=== PATIENT | male | born 1955 | race Caucasian/White ===

== ENCOUNTER 2017-03-30 19:22 | Inpatient (IN) | payer MEDICAID, OTHER ==
[~2017-03-30] VITALS: Ht 182.9 cm; Wt 84.5 kg
[2017-03-30] MEDS ORDERED: PIPER-TAZO 3.375 GM IV (PMX) 100 ML IVPB ONE (22:30)
[2017-03-30] MEDS ORDERED: VANCOMYCIN 1 GM (PMX) 250 ML IVPB SCH (22:30)
--- NOTE | 2017-03-30 23:01 | ERA ---
ER Documentation Chief Complaint Date/Time DATE: 03/30/17 TIME: 22:59 Chief Complaint RT FOOT/TOE INFECTION [id number]. ON ORAL ATB. SENT FOR FURTHER EVAL BY PMD HPI 61-year-old male here for right great toe infection for 8 weeks. He is on oral antibiotics. Sent in by his spring assembler for possible debridement and rule out osteomyelitis. ROS All systems reviewed and are negative except as per history of present illness. Allergies Allergies: Coded Allergies: No Known Allergy (Unverified , 03/30/17) PMhx/Soc Hx Miscellaneous Medical Probl: Yes (DM) Hx Alcohol Use: No Hx Substance Use: No Hx Tobacco Use: No Smoking Status: Never smoker Physical Exam Vitals Vital Signs Date Time Temp Pulse Resp B/P Pulse Ox O2 Delivery O2 Flow Rate FiO2 03/30/17 20:05 98.8 117 18 132/76 98 Physical Exam Const: [] Head: Atraumatic Eyes: Normal Conjunctiva ENT: Normal External Ears, Nose and Mouth. Neck: Full range of motion..~ No meningismus. Resp: Clear to auscultation bilaterally Cardio: Regular rate and rhythm, no murmurs Abd: Soft, non tender, non distended. Normal bowel sounds Skin: No petechiae or rashes Back: No midline or flank tenderness Ext: Right toe with induration and erythema noted. Neur: Awake and alert Psych: Normal Mood and Affect Results 24 hrs Current Medications Medications (Trade) Dose Ordered Sig/Darion Route PRN Reason Start Time Stop Time Status Last Admin Dose Admin Piperacillin Sod/ Tazobactam Sod 100 ml @ 200 mls/hr ONCE ONCE IVPB 03/30/17 22:30 03/30/17 22:59 DC 03/30/17 22:54 Vancomycin HCl (Vancocin) 250 ml @ 125 mls/hr ONCE IVPB 03/30/17 22:30 03/31/17 00:29 Procedures/MDM Medical decision-makin-year-old male with likely osteomyelitis present in by spring assembler. Admitted to hospitalist. Log Cut Off Sawyer here in ER seeing patient Departure Diagnosis: Primary Impression: Osteomyelitis Qualified Code: M86.9 - Osteomyelitis of right foot, unspecified type Condition: Serious MONY ESCOBAR Mar 30, 2017 23:01
[2017-03-30 23:14] LABS: ADD SCAN DIFF NO
[2017-03-30 23:18] LABS: BASOPHIL # 0.1 10^3/ul (0.0-0.1); EOSINOPHILS # 0.3 10^3/ul (0.0-0.5); HEMATOCRIT 35.4 % (42.0-52.0); HEMOGLOBIN 11.3 g/dl (14.0-18.0); LYMPHOCYTES # 1.6 10^3/ul (0.8-2.9); LYMPHOCYTES % 26.3 % (15.0-51.0); MEAN CORPUSCULAR HEMOGLOBIN 27.6 pg (29.0-33.0); MEAN CORPUSCULAR HGB CONC 31.9 g/dl (32.0-37.0); MEAN CORPUSCULAR VOLUME 86.6 fl (82.0-101.0); MEAN PLATELET VOLUME 9.6 fl (7.4-10.4); MONOCYTE # 0.7 10^3/ul (0.3-0.9); MONOCYTES % 11.5 % (0.0-11.0); NEUTROPHIL # 3.6 10^3/ul (1.6-7.5); PLATELET COUNT 379 10^3/UL (140-415); RED BLOOD COUNT 4.09 10^6/ul (4.70-6.10); RED CELL DISTRIBUTION WIDTH 14.3 % (11.5-14.5); WHITE BLOOD COUNT 6.2 10^3/ul (4.8-10.8)
--- NOTE | 2017-03-30 23:44 | RADRPT ---
PROCEDURE: XR right foot. CLINICAL INDICATION: Infection TECHNIQUE: AP, lateral and oblique views of the right foot were obtained. COMPARISON: None. FINDINGS: Bony destruction involving the first metatarsal head and first proximal phalangeal base is present, the finding most compatible with septic arthritis and osteomyelitis of the great toe. The distal ph alanx of the great toe is abnormal in morphology. The remaining metatarsals and phalanges are unrem arkable. There is no evidence for dislocation. Joint spaces are preserved. Severe soft tissue swe lling and foci of subcutaneous gas involving the great toe are present . There is no evidence for ra diopaque foreign body. RPTAT:HJJR IMPRESSION: Bony destruction of the metatarsal phalangeal joint and phalanges of the great toe consistent with s eptic arthritis and osteomyelitis of the right foot with severe surrounding soft tissue swelling lik nikolas cellulitis. Follow-up is recommended. Physician Vilma Date Time Electronically viewed and signed by Physician Vilma on 03/30/2017 23:44 /
[2017-03-31] VITALS (10 sets, daily range): BP systolic 106–144; BP diastolic 52–80; PULSE 96–104; RESP 12–24; TEMP 98; Ht 182.9 cm; Wt 84.5 kg
[2017-03-31] MEDS ORDERED: ONDANSETRON 4 MG INJ IV PRN ×2 (07:30→23:00)
[2017-03-31] MEDS ORDERED: NACL 0.9% 3 ML SYG IV SCH (07:30)
[2017-03-31] MEDS ORDERED: ACETAMINOPHEN 325 MG TAB PO PRN ×2 (07:30→23:30)
[2017-03-31] MEDS ORDERED: morphine 2 MG INJ IV PRN (07:30)
[2017-03-31] MEDS ORDERED: VANCOMYCIN IV PER PHARMACY XX SCH (07:30)
[2017-03-31] MEDS ORDERED: VANCOMYCIN 750 MG in SOD CHLORIDE 0.9% 150 ML IVPB SCH (08:00)
[2017-03-31 08:03] LABS: ADD SCAN DIFF NO
[2017-03-31 08:05] LABS: BASOPHIL # 0.1 10^3/ul (0.0-0.1); EOSINOPHILS # 0.4 10^3/ul (0.0-0.5); EOSINOPHILS % 6.7 % (0.0-7.0); HEMATOCRIT 33.4 % (42.0-52.0); HEMOGLOBIN 10.7 g/dl (14.0-18.0); LYMPHOCYTES # 1.3 10^3/ul (0.8-2.9); LYMPHOCYTES % 21.5 % (15.0-51.0); MEAN CORPUSCULAR HEMOGLOBIN 27.7 pg (29.0-33.0); MEAN CORPUSCULAR VOLUME 86.5 fl (82.0-101.0); MEAN PLATELET VOLUME 9.9 fl (7.4-10.4); MONOCYTE # 0.7 10^3/ul (0.3-0.9); MONOCYTES % 10.9 % (0.0-11.0); NEUTROPHIL # 3.6 10^3/ul (1.6-7.5); NEUTROPHILS % 59.7 % (39.0-77.0); PLATELET COUNT 327 10^3/UL (140-415); RED BLOOD COUNT 3.86 10^6/ul (4.70-6.10); RED CELL DISTRIBUTION WIDTH 14.5 % (11.5-14.5); WHITE BLOOD COUNT 6.1 10^3/ul (4.8-10.8)
[2017-03-31] MEDS ORDERED: NPH,100V SQ (08:28)
[2017-03-31] MEDS ORDERED: NPH,100I5 SQ (08:28)
[2017-03-31 08:50] LABS: ALBUMIN 4.4 g/dl (3.3-4.9); ALBUMIN/GLOBULIN RATIO 1.29; BILIRUBIN,INDIRECT 0.5 mg/dl (0-1.1); BILIRUBIN,TOTAL 0.5 mg/dl (0.2-1.3); CALCIUM 8.6 mg/dl (8.4-10.2); CREATININE 1.03 mg/dl (0.61-1.24); POTASSIUM 4.9 mmol/L (3.5-5.1); TOTAL PROTEIN 7.8 g/dl (6.1-8.1)
[2017-03-31] MEDS: ENOXAPARIN 40 MG/0.4 ML SYG SC SCH ×2 (09:00→09:22)
[2017-03-31] MEDS: CEFEPIME 1GM/50 ML (PMX) 50 ML IVPB SCH (09:23)
--- NOTE | 2017-03-31 09:58 | PN ---
Date/Time of Note Date/Time of Note DATE: 03/31/17 TIME: 09:58 Assessment/Plan VTE Prophylaxis VTE Prophylaxis Intervention: SCD's Lines/Catheters IV Catheter Type (from Nrs): Saline Lock Assessment/Plan Chief Complaint/Hosp Course Assessment and plan 1. Possible right lower extremity osteomyelitis. Podiatry following. Will get ID consult to follow. Follow-up on culture. Continue antibiotic for now. 2. History of diabetes. Follow-up on A1c. Start on insulin regimen. Will adjust as needed 3. Anemia. Follow-up on iron panel. Disposition and plan: Suspect with right lower extremity cellulitis/osteo- myelitis. Continue antibiotics. Await ID and podiatry input. Continue inpatient monitoring. Discussed plan of care with Dr. Thomson. Problems: Subjective 24 Hr Interval Summary Free Text/Dictation No acute distress noted at this time. Comfortable at present Exam/Review of Systems Vital Signs Vitals Vital Signs Date Time Temp Pulse Resp B/P Pulse Ox O2 Delivery O2 Flow Rate FiO2 03/31/17 05:55 98.0 85 18 166/76 98 Room Air Exam Constitutional: alert, oriented Psych: no complaints Head: normocephalic Neck: supple, No jvd Respiratory: clear to auscultation, normal air movement Cardiovascular: regular rate and rhythm Gastrointestinal: non-tender, soft Extremities: other (Seen with wound drainage on right lower extremity malodorous) 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: HYDRAULIC SPINNER II-XII intact, nl mental status, nl speech Results Result Diagram: 03/31/17 0752 03/31/17 0752 Results 24 hrs Laboratory Tests Test 03/30/17 22:50 03/31/17 00:40 03/31/17 07:52 White Blood Count 6.2 6.1 Red Blood Count 4.09 L 3.86 L Hemoglobin 11.3 L 10.7 L Hematocrit 35.4 L 33.4 L Mean Corpuscular Volume 86.6 86.5 Mean Corpuscular Hemoglobin 27.6 L 27.7 L Mean Corpuscular Hemoglobin Concent 31.9 L 32.0 Red Cell Distribution Width 14.3 14.5 Platelet Count 379 327 Mean Platelet Volume 9.6 9.9 Neutrophils % 57.0 59.7 Lymphocytes % 26.3 21.5 Monocytes % 11.5 H 10.9 Eosinophils % 4.0 6.7 Basophils % 1.0 1.0 Nucleated Red Blood Cells % 0.0 0.0 Neutrophils # 3.6 3.6 Lymphocytes # 1.6 1.3 Monocytes # 0.7 0.7 Eosinophils # 0.3 0.4 Basophils # 0.1 0.1 Nucleated Red Blood Cells # 0.0 0.0 Erythrocyte Sedimentation Rate 70 H Bedside Glucose 72 Sodium Level 137 Potassium Level 4.9 Chloride Level 103 Carbon Dioxide Level 25 Anion Gap 14 Blood Urea Nitrogen 14 Creatinine 1.03 Glucose Level 261 H Calcium Level 8.6 Total Bilirubin 0.5 Direct Bilirubin 0.00 Indirect Bilirubin 0.5 Aspartate Amino Transf (AST/SGOT) 23 Alanine Aminotransferase (ALT/SGPT) 25 Alkaline Phosphatase 108 Total Protein 7.8 Albumin 4.4 Globulin 3.40 H Albumin/Globulin Ratio 1.29 Medications Medications Current Medications Ondansetron HCl (Zofran Inj) 4 mg Q6H PRN IV NAUSEA AND/OR VOMITING; Start 03/31 at 07:30 Acetaminophen (Tylenol Tab) 650 mg Q6H PRN PO PAIN LEVEL 1-3 OR FEVER; Start at 07:30 Morphine Sulfate (morphine) 2 mg Q4H PRN IV SEVERE PAIN LEVEL 7-10; Start at 07:30 Enoxaparin Sodium 40 mg 40 mg DAILY SC ; Start 03/31/17 at 09:00 Vancomycin HCl 750 mg/Sodium Chloride 150 ml @ 75 mls/hr ONCE IVPB Last administered on 03/31/17 08:02; Admin Dose 75 MLS/HR; Start 03/31/17 at 08:00; Stop 03/31/17 at 12:00 Cefepime HCl (Maxipime 1gm/50 ml (Pmx)) 50 ml @ 100 mls/hr Q12 IVPB Last administered on 03/31/17 09:23; Admin Dose 100 MLS/HR; Start 03/31/17 at 09:00 KARISHMA CARREON Mar 31, 2017 09:58
--- NOTE | 2017-03-31 10:08 | QN ---
Documentation Comment Observation Note: Time: 4 hours Family Hx: Negative for diabetes Evaluation: Multiple exams showed improving symptoms and no evidence of clinical decompensation. JESSICA MACIAS MD Mar 31, 2017 10:08
[2017-03-31] MEDS ORDERED: GLUCOSE GEL 15 GRAM TUBE BUCCAL PRN (10:30)
[2017-03-31] MEDS ORDERED: DEXTROSE 50% 50 ML SYRINGE IV PRN ×2 (10:30)
[2017-03-31] MEDS ORDERED: GLUCAGON 1 MG INJ IM PRN (10:30)
[2017-03-31] MEDS ORDERED: GLUCOSE GEL 15 GRAM TUBE PO PRN ×2 (10:30)
[2017-03-31] MEDS: INSULIN GLARGINE [LANtus] 3 ML PEN SC SCH (11:16)
[2017-03-31] MEDS: INSULIN ASPART [NOVOLOG] 3 ML PEN SC SCH ×4 (12:54→17:28)
[2017-03-31 13:00] LABS: IRON 53 ug/dl (35-150)
[2017-03-31 13:10] LABS: TOTAL IRON BINDING CAPACITY 275 ug/dl (241-421)
--- NOTE | 2017-03-31 14:30 | CONS ---
DATE OF ADMISSION: 03/30/2017 DATE OF CONSULTATION: 03/31/2017 TYPE OF CONSULTATION: Infectious Disease. REASON FOR CONSULTATION: Antibiotic management. HISTORY OF PRESENT ILLNESS: Silvio Dang is a 61-year-old male who comes in with right foot and to e infection for 8 weeks. The patient has right great toe infection. He is on oral antibiotics, see n by his business office manager for possible debridement and to rule out osteomyelitis. The patient has diabete s mellitus. PAST MEDICAL HISTORY: Operations as outlined. FAMILY HISTORY: Noncontributory. SOCIAL HISTORY: He does not smoke, drink or abuse drugs. ALLERGIES: NONE TO PENICILLIN, SULFA OR FOODS. MEDICATIONS: Per chart. REVIEW OF SYSTEMS: As per HPI. PHYSICAL EXAMINATION: GENERAL: The patient is a well-developed, well-nourished male, alert, responsive, in no acute distr ess. VITAL SIGNS: Stable. He is afebrile. SKIN: Without generalized rash. HEENT: Within normal limits. NECK: Supple. LYMPH NODES: None palpable. CHEST: Decreased breath sounds at the bases. HEART: Without murmur or gallop. ABDOMEN: Soft, nontender, without organosplenomegaly or masses. EXTREMITIES: The patient has some wound drainage on the right lower extremity which is malodorous. RECTAL AND GENITAL: Deferred. NEUROLOGIC: No focal neurological abnormality. ANCILLARY LABORATORY DATA: White count was 6.1, H and H of 10.7 and 33.4, platelet count 327,000. BUN and creatinine 14/1.03, glucose of 261. IMPRESSION AND PLAN: The patient was started on vancomycin and cefepime. A foot x-ray shows bony d estruction of the metatarsophalangeal joint and phalanges of the great toe on the right, consistent with septic arthritis and osteomyelitis of the right foot with surrounding soft tissue swelling, lik nikolas cellulitis. My feeling is that we need a podiatric evaluation and debridement of the area. Wou nd culture has been done. I will check that blood cultures were also done, which they were. I will dictate my findings to the hospitalist. Dictated By: FRANCE DE LA VEGA MD, JD/YA Conf#: [id number] DID#: [id number]
[2017-03-31] MEDS: VANCOMYCIN 1 GM in NS 250 ML IVPB SCH (17:38)
--- NOTE | 2017-03-31 21:53 | HPN ---
Date/Time of Note Date/Time of Note DATE: 03/31/17 TIME: 21:53 Interval H&P Admission Note Pt. seen H&P reviewed: No system changes EMILY PIZANO DPM Mar 31, 2017 21:53
[2017-03-31] MEDS ORDERED: MIDAZOLAM 1 MG/ML 2 ML INJ ONE (22:20)
[2017-03-31] MEDS ORDERED: PROPOFOL 20 ML ONE ×3 (22:20→23:07)
[2017-03-31] MEDS ORDERED: LIDOCAINE 1% (STERILE-PAK) 30 ML INJ ONE (22:20)
[2017-03-31] MEDS ORDERED: METOCLOPRAMIDE 10 MG INJ ONE (22:20)
[2017-03-31] MEDS ORDERED: FENTAnyl 50 MCG/ML VIAL ONE ×2 (22:20→22:32)
[2017-03-31] MEDS ORDERED: BACITRACIN 50000 UNITS INJ ONE (22:22)
[2017-03-31] MEDS ORDERED: EPHEDrine SULFATE 50 MG/5 ML SYG ONE (22:48)
[2017-03-31] MEDS ORDERED: VANCOMYCIN 1 GM INJ ONE (22:55)
[2017-03-31] MEDS ORDERED: DIPHENHYDRAMINE 50 MG INJ IV PRN ×2 (23:00→23:30)
[2017-03-31] MEDS ORDERED: MEPERIDINE 25 MG INJ IV PRN (23:00)
[2017-03-31] MEDS ORDERED: METOCLOPRAMIDE 10 MG INJ IV PRN (23:00)
[2017-03-31] MEDS ORDERED: HYDROmorphONE (0.2 MG/ML) 10ML SYG IV PRN ×3 (23:00)
[2017-03-31] MEDS ORDERED: PHENYLephrine (100 MCG/ML) 5ML SYG ONE (23:07)
[2017-03-31] MEDS ORDERED: KETOROLAC 30 MG INJ IV PRN (23:30)
[2017-04-01 00:01] VITALS: BP 106/65; PULSE 99; RESP 24
[2017-04-01] MEDS: CEFEPIME 1GM/50 ML (PMX) 50 ML IVPB SCH ×2 (00:21→08:21)
[2017-04-01] MEDS: INSULIN ASPART [NOVOLOG] 3 ML PEN SC SCH ×9 (00:23→21:00)
--- NOTE | 2017-04-01 00:37 | OPR ---
DATE OF OPERATION: 03/31/2017 SURGEON: Emily Zamudio DPM VP BUSINESS DEVELOPMENT: Noe Pan DPM PREOPERATIVE DIAGNOSES: 1. Right foot abscess. 2. Right foot osteomyelitis. 3. Right foot deep space abscess. 4. History of partial hallux amputation. 5. Diabetes type 2 with peripheral neuropathy. POSTOPERATIVE DIAGNOSES: 1. Right foot abscess. 2. Right foot osteomyelitis. 3. Right foot deep space abscess. 4. History of partial hallux amputation 5. Diabetes type 2 with peripheral neuropathy. PROCEDURE: 1. Right foot incision and drainage with pulse lavage. 2. Excisional debridement of skin, subcutaneous tissue, muscle, and bone 10 x 5 cm. ANESTHESIA: MAC. ESTIMATED BLOOD LOSS: 60 mL. PATHOLOGY: Bone culture and bone for pathology. HEMOSTASIS: Compression and electrocautery. COMPLICATIONS: None. INDICATION FOR PROCEDURE: This is a 61-year-old male with history of puncture wound with subsequent outpatient treatment with oral antibiotics and had treatment failure with developing deep space abs cess. The patient had undergone a partial open right hallux amputation, has persistent severe infec tion involving the right foot at risk for amputation. The patient consented for the procedure. All questions were answered to his satisfaction. The patient consented for right foot incision and sourav inage and debridement. PROCEDURE IN DETAIL: The patient brought into the operating room and placed in the supine position. Formal timeout was performed. The patient had been on perioperative antibiotics including vancomy rosario and Zosyn. The foot was prepped with Betadine scrub and paint, and draped in usual sterile fash ion. At this time, a 15 blade was used to drain the medial aspect of the foot abscess noted and pur ulence drained. At this time using, a rongeur, pickup scissors, and the Versajet, excisional debrid ement of skin, subcutaneous tissue, tendon, and bone performed. Sesamoids were excised and explored for any deep tunnels. The patient had estimated blood loss of 70 mL. The wound was irrigated with hydrogen peroxide. Bone was obtained for both culture and pathology. Hemostasis was achieved usin g electrocautery. At this time, a silver foam wound VAC was applied intraoperatively and set at 125 mmHg continuous setting. The patient tolerated the procedure well and was transferred to the PACU with vital signs stable. POSTOPERATIVE PLAN: We will continue to monitor the wound and output from the wound VAC. Continue IV antibiotics. Anticipate revisional debridement. The patient is nonweightbearing to the right fo ot. Will need a Cam boot. We will initially initiate antifungal as well as Zosyn medication. Dictated By: EMILY GERARDO/YA Conf#: [id number] DID#: [id number] CC: MONY LEO MD;*EndCC*
[2017-04-01 01:16] VITALS: BP 126/64; RESP 18
[2017-04-01 05:51] LABS: ADD SCAN DIFF NO
[2017-04-01 05:57] LABS: BASOPHIL # 0.1 10^3/ul (0.0-0.1); BASOPHILS % 0.8 % (0.0-2.0); EOSINOPHILS # 0.2 10^3/ul (0.0-0.5); EOSINOPHILS % 1.9 % (0.0-7.0); HEMATOCRIT 33.4 % (42.0-52.0); HEMOGLOBIN 10.3 g/dl (14.0-18.0); LYMPHOCYTES # 1.2 10^3/ul (0.8-2.9); LYMPHOCYTES % 13.6 % (15.0-51.0); MEAN CORPUSCULAR HEMOGLOBIN 27.2 pg (29.0-33.0); MEAN CORPUSCULAR HGB CONC 30.8 g/dl (32.0-37.0); MEAN CORPUSCULAR VOLUME 88.1 fl (82.0-101.0); MONOCYTE # 0.7 10^3/ul (0.3-0.9); MONOCYTES % 7.9 % (0.0-11.0); NEUTROPHIL # 6.7 10^3/ul (1.6-7.5); NEUTROPHILS % 75.3 % (39.0-77.0); PLATELET COUNT 272 10^3/UL (140-415); RED BLOOD COUNT 3.79 10^6/ul (4.70-6.10); RED CELL DISTRIBUTION WIDTH 14.4 % (11.5-14.5); WHITE BLOOD COUNT 8.8 10^3/ul (4.8-10.8)
[2017-04-01 06:19] LABS: CALCIUM 8.5 mg/dl (8.4-10.2); CREATININE 0.95 mg/dl (0.61-1.24); MAGNESIUM 1.9 mg/dl (1.7-2.5); PHOSPHORUS 3.5 mg/dl (2.5-4.9); POTASSIUM 5.5 mmol/L (3.5-5.1)
[2017-04-01] MEDS: ENOXAPARIN 40 MG/0.4 ML SYG SC SCH (06:22)
[2017-04-01] MEDS: VANCOMYCIN 1 GM in NS 250 ML IVPB SCH ×2 (06:23→17:36)
[2017-04-01] MEDS: PIPER-TAZO 3.375 GM IV (PMX) 100 ML IVPB SCH ×3 (06:23→21:31)
--- NOTE | 2017-04-01 06:39 | HP ---
DATE OF ADMISSION: 03/30/2017 CHIEF COMPLAINT: Right great toe infection. The patient is a 61-year-old male with a history of diabetes who was sent with a history of type 1 diabetes, who was ____ Dr. Zamudio to rule out for osteomyelitis, and possible debridements. He has been having this problem for 2 months and has been on antibiotics for possible debridement. ____. The patient presented to the ER, ____. and glucose of 261, otherwise ____. The ESR was ___ _ 70. The right foot x-ray shows bony destruction of the metatarsal fracture. ____ with the great toe consistent with septic arthritis or osteomyelitis on the right foot ____showed soft tissue swel ling, likely from ____ . I will give a dose of vancomycin and Zosyn. REVIEW OF SYSTEMS: Was performed and is negative except as mentioned in HPI. PAST MEDICAL HISTORY: As per HPI. SOCIAL HISTORY: Denied a history of tobacco, alcohol or illicit drug use. ALLERGIES: NO KNOWN DRUG ALLERGIES. HOME MEDICATIONS: Insulin. PHYSICAL EXAMINATION VITAL SIGNS: Stable. GENERAL: The patient is lying in bed in no acute distress, alert and oriented. HEENT: ____ atraumatic. ____ CARDIOVASCULAR: Regular rate and rhythm. No extra sounds. LUNGS: Clear. ABDOMEN: Soft, nontender. ____Positive bowel sounds. ____: No edema. EXTREMITIES: Right foot toe swelling with overlying infection and cellulitis ____. LABORATORY: ____HPI. IMAGING: Right foot x-ray with results as mentioned in the HPI. IMPRESSION: 1. Right great toe osteomyelitis. 2. Type 1 diabetes. PLAN: He will be placed on broad spectrum antibiotics. Will order blood culture and wound culture. He is to follow up with his fleet maintenance manager, Dr. Zamudio. I will order wound care consult. We will pr ovide pain medication as needed. For diabetes, he will be continued with his Insulin and ____ as ne eded. Dictated By: MONY MANN/YA Conf#: [id number] DID#: [id number]
[2017-04-01 07:39] VITALS: BP 113/58; RESP 20
[2017-04-01] MEDS: FLUCONAZOLE 200 MG TAB PO SCH (08:20)
[2017-04-01] MEDS: ASCORBIC ACID 500 MG TAB PO SCH (08:20)
[2017-04-01] MEDS: FAMOTIDINE 20 MG INJ IV SCH ×2 (08:21→21:31)
[2017-04-01] MEDS: INSULIN GLARGINE [LANtus] 3 ML PEN SC SCH (08:28)
[2017-04-01] MEDS ORDERED: INSULIN GLARGINE [LANtus] 3 ML PEN SC ONE (10:00)
--- NOTE | 2017-04-01 12:08 | PN ---
Date/Time of Note Date/Time of Note DATE: 04/01/17 TIME: 12:05 Assessment/Plan VTE Prophylaxis VTE Prophylaxis Intervention: LMWH Lines/Catheters IV [facility]from [facility] Saline Lock Assessment/Plan Chief Complaint/Hosp Course Assessment and plan 1. Right foot abscess/osteomyelitis. Podiatry following. Patient status post I&D. Follow-up on final wound culture. Antibiotics per ID recommendations 2. History of diabetes. A1c at 7.9. Still with uncontrolled blood glucose. Will adjust insulin regimen. 3. Anemia. Stable at present. Will monitor for now Disposition and plan: Patient status post I&D of right lower extremity. Continue on antibiotics and wound care. Insulin regimen adjusted. Discharge when medically stable and cleared by consultants Discussed plan of care with Dr. Thomson. Problems: Subjective 24 Hr Interval Summary Free Text/Dictation Comfortable at present. No apparent distress. Exam/Review of Systems Vital Signs Vitals Vital Signs Date Time Temp Pulse Resp B/P Pulse Ox O2 Delivery O2 Flow Rate FiO2 04/01/17 07:39 97.7 89 20 113/58 97 04/01/17 00:01 Room Air Intake and Output 03/31/17 03/31/17 04/01/17 15:00 23:00 07:00 Intake Total 365 ml 1335 ml Output Total 25 ml Balance 365 ml 1310 ml Exam Constitutional: alert, oriented Psych: no complaints Respiratory: clear to auscultation, normal air movement Cardiovascular: regular rate and rhythm Gastrointestinal: non-tender, soft Extremities: other (Noted with wound on right lower extremity. Status post I& D. Dressing CDI) 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: DUMBWAITER OPERATOR II-XII intact, nl mental status, nl speech Skin: nl turgor Results Result Diagram: 04/01/17 0515 04/01/17 0515 Results 24 hrs Laboratory Tests Test 03/31/17 12:52 03/31/17 17:24 03/31/17 20:03 04/01/17 00:12 Bedside Glucose 378 H 298 H 188 229 H Test 04/01/17 05:15 04/01/17 07:56 White Blood Count 8.8 # Red Blood Count 3.79 L Hemoglobin 10.3 L Hematocrit 33.4 L Mean Corpuscular Volume 88.1 Mean Corpuscular Hemoglobin 27.2 L Mean Corpuscular Hemoglobin Concent 30.8 L Red Cell Distribution Width 14.4 Platelet Count 272 Mean Platelet Volume 10.0 Neutrophils % 75.3 Lymphocytes % 13.6 L Monocytes % 7.9 Eosinophils % 1.9 Basophils % 0.8 Nucleated Red Blood Cells % 0.0 Neutrophils # 6.7 Lymphocytes # 1.2 Monocytes # 0.7 Eosinophils # 0.2 Basophils # 0.1 Nucleated Red Blood Cells # 0.0 Sodium Level 135 Potassium Level 5.5 H Chloride Level 101 Carbon Dioxide Level 26 Anion Gap 14 Blood Urea Nitrogen 15 Creatinine 0.95 Glucose Level 294 H Hemoglobin A1c 7.9 H Calcium Level 8.5 Phosphorus Level 3.5 Magnesium Level 1.9 Bedside Glucose 350 H Medications Medications Current Medications Ondansetron HCl (Zofran Inj) 4 mg Q6H PRN IV NAUSEA AND/OR VOMITING; Start 03/31 at 07:30 Acetaminophen (Tylenol Tab) 650 mg Q6H PRN PO PAIN LEVEL 1-3 OR FEVER; Start at 07:30 Morphine Sulfate 2 mg 2 mg Q4H PRN IV SEVERE PAIN LEVEL 7-10; Start 03/31/17 at 07:30 Cefepime HCl (Maxipime 1gm/50 ml (Pmx)) 50 ml @ 100 mls/hr Q12 IVPB Last administered on 04/01/17t 08:21; Admin Dose 100 MLS/HR; Start 03/31/17 at 09:00 Miscellaneous Information 1 ea NOTE XX ; Start 03/31/17 at 10:30 Glucose (Glutose) 15 gm Q15M PRN PO DECREASED GLUCOSE; Start 03/31/17 at 10:30 Glucose (Glutose) 22.5 gm Q15M PRN PO DECREASED GLUCOSE; Start 03/31/17 at 10:30 Dextrose (D50w Syringe) 25 ml Q15M PRN IV DECREASED GLUCOSE; Start 03/31/17 at 10:30 Dextrose (D50w Syringe) 50 ml Q15M PRN IV DECREASED GLUCOSE; Start 03/31/17 at 10:30 Glucagon (Glucagen) 1 mg Q15M PRN IM DECREASED GLUCOSE; Start 03/31/17 at 10:30 Glucose 15 gm 15 gm Q15M PRN BUCCAL DECREASED GLUCOSE; Start 03/31/17 at 10:30 Vancomycin HCl (Vancocin) 250 ml @ 125 mls/hr Q12H IVPB Last administered on 06:23; Admin Dose 125 MLS/HR; Start 03/31/17 at 18:00 Miscellaneous Information (*Rx Drug Level Order Reminder*) VANCOMYCIN TROUGH LEVEL... ONCE ONCE XX ; Start 04/01/17 at 17:00; Stop 04/01/17 at 17:01 Acetaminophen (Tylenol Tab) 650 mg Q6H PRN PO PAIN AND OR ELEVATED TEMP; Start 03/31/17 at 23:30 Ibuprofen (Motrin) 600 mg Q6H PRN PO PAIN LEVEL 6-10; Start 04/03/17 at 23:30 Ketorolac Tromethamine (Toradol) 30 mg Q6H PRN IV PAIN; Start 03/31/17 at 23:30 ; Stop 04/03/17 at 23:29 Diphenhydramine HCl (Benadryl) 25 mg Q6H PRN IV ITCHING; Start 03/31/17 at 23:30 Famotidine (Pepcid Iv) 20 mg Q12 IV Last administered on 04/01/17 08:21; Admin Dose 20 MG; Start 04/01/17 at 09:00 Enoxaparin Sodium (Lovenox) 40 mg DAILY@07 SC Last administered on 04/01/17 06: 22; Admin Dose 40 MG; Start 04/01/17 at 07:00 Ascorbic Acid (Vitamin C) 1,000 mg DAILY PO Last administered on 04/01/17 08:20 ; Admin Dose 1,000 MG; Start 04/01/17 at 09:00 Fluconazole 200 mg 200 mg DAILY PO Last administered on 04/01/17 08:20; Admin Dose 200 MG; Start 04/01/17 at 09:00 Piperacillin Sod/ Tazobactam Sod (Zosyn 3.375gm/ 100 ml (Pmx)) 100 ml @ 200 mls /hr Q8 IVPB Last administered on 04/01/17 06:23; Admin Dose 200 MLS/HR; Start 04/01/17 at 06:00 Diagnostic Test (Pha) (Accu-Chek) 1 ea 02 XX ; Start 04/02/17 at 02:00 Insulin Human NPH (Humulin N) 18 unit DAILY@08 SC ; Start 04/02/17 at 08:00 Insulin Human NPH (Humulin N) 12 unit DAILY@20 SC ; Start 04/01/17 at 20:00 KARISHMA CARREON Apr 01, 2017 12:08
--- NOTE | 2017-04-01 13:42 | PN ---
DATE: 04/01/2017 INFECTIOUS DISEASE PROGRESS NOTE SUBJECTIVE: No acute changes. Patient is alert, feels good, looks comfortable. Denies pain, no fe vers. WBC today 8.8, no shift, no bands. BUN 15, creatinine 0.95. MICROBIOLOGY: Wound cultures pending. ANTIMICROBIALS: 1. Vancomycin. 2. Zosyn. 3. Fluconazole. PHYSICAL EXAMINATION: GENERAL: Well-nourished, well-developed man who is alert, in no distress. HEENT: Head atraumatic, normocephalic. Sclerae anicteric. Buccal mucosa pink. NECK: Supple. CHEST: Rise symmetrical. Breath sounds clear. HEART: S1, S2. ABDOMEN: Soft, bowel tones present. EXTREMITIES: With right foot dressing intact. ASSESSMENT: 1. Right foot abscess osteomyelitis, status post incision and drainage yesterday. 2. Diabetes with diabetic neuropathy. PLAN: The patient remains stable. Final cultures pending. We are going to discontinue cefepime. Continue vancomycin and Zosyn. Follow up recommendations of podiatry and await for final cultures. Dictated By: KULWANT ZAMORA EMERGENCY CREW SUPERVISOR for FRANCE DE LA VEGA MD NI/NTS Conf#: [id number] DID#: [id number]
[2017-04-01] MEDS ORDERED: INSULIN GLARGINE [LANtus] 3 ML PEN SC SCH (20:00)
[2017-04-01 21:16] VITALS: BP 142/69; RESP 18
[2017-04-01] MEDS: NPH, HUMAN INSULIN ISOPHANE 3ML VIAL SC SCH (21:31)
[2017-04-02] VITALS (15 sets, daily range): BP systolic 73–163; BP diastolic 34–75; PULSE 72–99; RESP 11–23
[2017-04-02] MEDS: ACCU-CHEK XX SCH (02:00)
[2017-04-02] MEDS: PIPER-TAZO 3.375 GM IV (PMX) 100 ML IVPB SCH ×2 (05:42→14:33)
[2017-04-02] MEDS: VANCOMYCIN 1.5 GM in SOD CHLORIDE 0.9% 250 ML IVPB SCH ×2 (06:58→17:45)
[2017-04-02] MEDS: ENOXAPARIN 40 MG/0.4 ML SYG SC SCH (06:59)
[2017-04-02] MEDS: INSULIN ASPART [NOVOLOG] 3 ML PEN SC SCH ×7 (08:07→20:30)
[2017-04-02] MEDS: ASCORBIC ACID 500 MG TAB PO SCH (08:09)
[2017-04-02] MEDS: FAMOTIDINE 20 MG INJ IV SCH (08:09)
[2017-04-02] MEDS: NPH, HUMAN INSULIN ISOPHANE 3ML VIAL SC SCH ×2 (08:09→20:00)
[2017-04-02] MEDS: FLUCONAZOLE 200 MG TAB PO SCH (08:09)
[2017-04-02] MEDS ORDERED: INSULIN GLARGINE [LANtus] 3 ML PEN SC SCH (09:00)
--- NOTE | 2017-04-02 16:07 | CONS ---
Date/Time of Note Date/Time of Note DATE: 04/02/17 TIME: 16:05 Assessment/Plan Assessment/Plan Chief Complaint/Hosp Course SUBJECTIVE: No acute changes. Patient is alert, feels good, looks comfortable. Denies pain, no fevers. MICROBIOLOGY: Wound cultures + GNR preliminary. ANTIMICROBIALS: 1. Vancomycin. 2. Zosyn. 3. Fluconazole. PHYSICAL EXAMINATION: GENERAL: Well-nourished, well-developed man who is alert, in no distress. HEENT: Head atraumatic, normocephalic. Sclerae anicteric. Buccal mucosa pink. NECK: Supple. CHEST: Rise symmetrical. Breath sounds clear. HEART: S1, S2. ABDOMEN: Soft, bowel tones present. EXTREMITIES: With right foot dressing intact. ASSESSMENT: 1. Right foot abscess osteomyelitis, status post incision and drainage 04/01/17y. 2. Diabetes with diabetic neuropathy. PLAN: The patient remains stable. Continue abx, await for final cx, may need PICC line==> will give final rec-s after cx back [facility] staff Problems: Consultation Date/Type/Reason Admit Date/Time Mar 30, 2017 at 22:29 Initial Consult Date Type of Consultation: ID Exam/Review of Systems Vital Signs Vitals Vital Signs Date Time Temp Pulse Resp B/P Pulse Ox O2 Delivery O2 Flow Rate FiO2 04/02/17 07:48 98.2 79 18 139/68 98 04/01/17 00:01 Room Air Intake and Output 04/01/17 04/01/17 04/02/17 15:00 23:00 07:00 Intake Total 350 ml 2150 ml 1050 ml Output Total 800 ml 250 ml 825 ml Balance -450 ml 1900 ml 225 ml Results Result Diagram: 04/01/17 0515 04/01/17 1100 Results 24 hrs Laboratory Tests Test 04/01/17 16:24 04/01/17 17:18 04/01/17 21:04 04/02/17 01:47 Vancomycin Level Trough 9.6 L Bedside Glucose 218 146 114 Test 04/02/17 08:01 04/02/17 12:21 04/02/17 15:51 Bedside Glucose 162 143 113 Medications Medications Current Medications Ondansetron HCl (Zofran Inj) 4 mg Q6H PRN IV NAUSEA AND/OR VOMITING; Start 03/31 at 07:30 Acetaminophen (Tylenol Tab) 650 mg Q6H PRN PO PAIN LEVEL 1-3 OR FEVER; Start at 07:30 Morphine Sulfate (morphine) 2 mg Q4H PRN IV SEVERE PAIN LEVEL 7-10; Start at 07:30 Miscellaneous Information 1 ea NOTE XX ; Start 03/31/17 at 10:30 Glucose (Glutose) 15 gm Q15M PRN PO DECREASED GLUCOSE; Start 03/31/17 at 10:30 Glucose (Glutose) 22.5 gm Q15M PRN PO DECREASED GLUCOSE; Start 03/31/17 at 10:30 Dextrose (D50w Syringe) 25 ml Q15M PRN IV DECREASED GLUCOSE; Start 03/31/17 at 10:30 Dextrose (D50w Syringe) 50 ml Q15M PRN IV DECREASED GLUCOSE; Start 03/31/17 at 10:30 Glucagon (Glucagen) 1 mg Q15M PRN IM DECREASED GLUCOSE; Start 03/31/17 at 10:30 Glucose (Glutose) 15 gm Q15M PRN BUCCAL DECREASED GLUCOSE; Start 03/31/17 at 10: 30 Acetaminophen (Tylenol Tab) 650 mg Q6H PRN PO PAIN AND OR ELEVATED TEMP; Start 03/31/17 at 23:30 Ibuprofen (Motrin) 600 mg Q6H PRN PO PAIN LEVEL 6-10; Start 04/03/17 at 23:30 Ketorolac Tromethamine (Toradol) 30 mg Q6H PRN IV PAIN; Start 03/31/17 at 23:30 ; Stop 04/03/17 at 23:29 Diphenhydramine HCl (Benadryl) 25 mg Q6H PRN IV ITCHING; Start 03/31/17 at 23:30 Famotidine (Pepcid Iv) 20 mg Q12 IV Last administered on 04/02/17 08:09; Admin Dose 20 MG; Start 04/01/17 at 09:00 Enoxaparin Sodium (Lovenox) 40 mg DAILY@07 SC Last administered on 04/02/17 06: 59; Admin Dose 40 MG; Start 04/01/17 at 07:00 Ascorbic Acid (Vitamin C) 1,000 mg DAILY PO Last administered on 04/02/17 08:09 ; Admin Dose 1,000 MG; Start 04/01/17 at 09:00 Fluconazole 200 mg 200 mg DAILY PO Last administered on 04/02/17 08:09; Admin Dose 200 MG; Start 04/01/17 at 09:00 Piperacillin Sod/ Tazobactam Sod (Zosyn 3.375gm/ 100 ml (Pmx)) 100 ml @ 200 mls /hr Q8 IVPB Last administered on 04/02/17 14:33; Admin Dose 200 MLS/HR; Start 04/01/17 at 06:00 Diagnostic Test (Pha) (Accu-Chek) ea 02 XX ; Start 04/02/17 at 02:00 Insulin Human NPH (Humulin N) 18 unit DAILY@08 SC Last administered on 08:09; Admin Dose 18 UNIT; Start 04/02/17 at 08:00 Insulin Human NPH 12 unit 12 unit DAILY@20 SC Last administered on 04/01/17 21: 31; Admin Dose 12 UNIT; Start 04/01/17 at 20:00 Vancomycin HCl/ Sodium Chloride (Vancocin/NS) 250 ml @ 83.333 mls/ hr Q12H IVPB Last administered on 04/02/17 06:58; Admin Dose 83.333 MLS/HR; Start at 06:00 Miscellaneous Information (*Rx Drug Level Order Reminder*) ONCE ONCE XX ; Start 04/03/17 at 17:00; Stop 04/03/17 at 17:01 KULWANT ZAMORA NP Apr 02, 2017 16:07
--- NOTE | 2017-04-02 17:09 | PN ---
Date/Time of Note Date/Time of Note DATE: 04/02/17 TIME: 17:05 Assessment/Plan VTE Prophylaxis VTE Prophylaxis Intervention: LMWH Lines/Catheters IV Catheter Type (from Nrs): Saline Lock Assessment/Plan Assessment/Plan 1. Right foot abscess/osteomyelitis. status post I&D. Follow-up with wound care and podiatry, ID for antibiotics 2. Diabetes, mellitus. A1c at 7.9. controlled 3. Normocytic anemia. Stable 4. DVT prophylaxis: lovenox Subjective 24 Hr Interval Summary Free Text/Dictation afebrile. pain on right foot Exam/Review of Systems Vital Signs Vitals Vital Signs Date Time Temp Pulse Resp B/P Pulse Ox O2 Delivery O2 Flow Rate FiO2 04/02/17 07:48 98.2 79 18 139/68 98 04/01/17 00:01 Room Air Intake and Output 04/01/17 04/01/17 04/02/17 15:00 23:00 07:00 Intake Total 350 ml 2150 ml 1050 ml Output Total 800 ml 250 ml 825 ml Balance -450 ml 1900 ml 225 ml Exam Constitutional: alert, oriented, well developed Psych: nl mood/affect, no complaints Head: atraumatic, normocephalic Eyes: EOMI, PERRL, nl conjunctiva, nl lids ENMT: nl external ears & nose, nl lips & teeth, nl nasal mucosa & septum Neck: non-tender, supple Respiratory: clear to auscultation, normal air movement, No congested cough, No crackles/rales, No diminished breath sounds, No intercostal retraction, No labored breathing, No other, No respirations, No tactile fremitus, No wheezing Cardiovascular: nl pulses, regular rate and rhythm, No S3, No S4, No bruits, No diastolic murmur, No edema, No gallop, No irregular rhythm, No jugular venous distention (JVD), No murmurs/extra sounds, No other, No rub, No systolic murmur Gastrointestinal: nl liver, spleen, non-tender, soft, No ascites, No bowel sounds, No distended, No firm, No hepatomegaly, No mass , No other, No rebound or guarding, No splenomegaly, No surgical scars, No tender Musculoskeletal: nl extremities to inspection Extremities: other (right foot wound) 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: 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, nl mental status, nl speech, nl strength Results Result Diagram: 04/01/17 0515 04/01/17 1100 Results 24 hrs Laboratory Tests Test 04/01/17 17:18 04/01/17 21:04 04/02/17 01:47 04/02/17 08:01 Bedside Glucose 218 146 114 162 Test 04/02/17 12:21 04/02/17 15:51 Bedside Glucose 143 113 Medications Medications Current Medications Ondansetron HCl (Zofran Inj) 4 mg Q6H PRN IV NAUSEA AND/OR VOMITING; Start 03/31 at 07:30 Acetaminophen (Tylenol Tab) 650 mg Q6H PRN PO PAIN LEVEL 1-3 OR FEVER; Start at 07:30 Morphine Sulfate (morphine) 2 mg Q4H PRN IV SEVERE PAIN LEVEL 7-10; Start at 07:30 Miscellaneous Information 1 ea NOTE XX ; Start 03/31/17 at 10:30 Glucose (Glutose) 15 gm Q15M PRN PO DECREASED GLUCOSE; Start 03/31/17 at 10:30 Glucose (Glutose) 22.5 gm Q15M PRN PO DECREASED GLUCOSE; Start 03/31/17 at 10:30 Dextrose (D50w Syringe) 25 ml Q15M PRN IV DECREASED GLUCOSE; Start 03/31/17 at 10:30 Dextrose (D50w Syringe) 50 ml Q15M PRN IV DECREASED GLUCOSE; Start 03/31/17 at 10:30 Glucagon (Glucagen) 1 mg Q15M PRN IM DECREASED GLUCOSE; Start 03/31/17 at 10:30 Glucose (Glutose) 15 gm Q15M PRN BUCCAL DECREASED GLUCOSE; Start 03/31/17 at 10: 30 Acetaminophen (Tylenol Tab) 650 mg Q6H PRN PO PAIN AND OR ELEVATED TEMP; Start 03/31/17 at 23:30 Ibuprofen (Motrin) 600 mg Q6H PRN PO PAIN LEVEL 6-10; Start 04/03/17 at 23:30 Ketorolac Tromethamine (Toradol) 30 mg Q6H PRN IV PAIN; Start 03/31/17 at 23:30 ; Stop 04/03/17 at 23:29 Diphenhydramine HCl (Benadryl) 25 mg Q6H PRN IV ITCHING; Start 03/31/17 at 23:30 Famotidine (Pepcid Iv) 20 mg Q12 IV Last administered on 04/02/17 08:09; Admin Dose 20 MG; Start 04/01/17 at 09:00 Enoxaparin Sodium (Lovenox) 40 mg DAILY@07 SC Last administered on 04/02/17 06: 59; Admin Dose 40 MG; Start 04/01/17 at 07:00 Ascorbic Acid (Vitamin C) 1,000 mg DAILY PO Last administered on 04/02/17 08:09 ; Admin Dose 1,000 MG; Start 04/01/17 at 09:00 Fluconazole 200 mg 200 mg DAILY PO Last administered on 04/02/17 08:09; Admin Dose 200 MG; Start 04/01/17 at 09:00 Piperacillin Sod/ Tazobactam Sod (Zosyn 3.375gm/ 100 ml (Pmx)) 100 ml @ 200 mls /hr Q8 IVPB Last administered on 04/02/17 14:33; Admin Dose 200 MLS/HR; Start 04/01/17 at 06:00 Diagnostic Test (Pha) (Accu-Chek) 1 ea 02 XX ; Start 04/02/17 at 02:00 Insulin Human NPH (Humulin N) 18 unit DAILY@08 SC Last administered on 08:09; Admin Dose 18 UNIT; Start 04/02/17 at 08:00 Insulin Human NPH 12 unit 12 unit DAILY@20 SC Last administered on 04/01/17 21: 31; Admin Dose 12 UNIT; Start 04/01/17 at 20:00 Vancomycin HCl/ Sodium Chloride (Vancocin/NS) 250 ml @ 83.333 mls/ hr Q12H IVPB Last administered on 04/02/17 06:58; Admin Dose 83.333 MLS/HR; Start at 06:00 Miscellaneous Information (*Rx Drug Level Order Reminder*) ONCE ONCE XX ; Start 04/03/17 at 17:00; Stop 04/03/17 at 17:01 LALITHA GRIFFIN MD Apr 02, 2017 17:09
[2017-04-02] MEDS ORDERED: LIDOCAINE 1% (STERILE-PAK) 30 ML INJ ONE (20:39)
[2017-04-02] MEDS ORDERED: MIDAZOLAM 1 MG/ML 2 ML INJ ONE (21:15)
[2017-04-02] MEDS ORDERED: PROPOFOL 40 ML ONE (21:15)
[2017-04-02] MEDS ORDERED: FENTAnyl 50 MCG/ML VIAL ONE (21:15)
[2017-04-02] MEDS ORDERED: HYDROGEN PEROXIDE 118 ML ZFS ONE (21:27)
[2017-04-02] MEDS ORDERED: METOCLOPRAMIDE 10 MG INJ IV PRN (21:30)
[2017-04-02] MEDS ORDERED: DIPHENHYDRAMINE 50 MG INJ IV PRN (21:30)
[2017-04-02] MEDS ORDERED: EPHEDrine SULFATE 50 MG/5 ML SYG IV PRN (21:30)
[2017-04-02] MEDS ORDERED: OXYCODONE/ACETAMINOPHEN (5/325) TAB PO PRN ×2 (21:30)
[2017-04-02] MEDS ORDERED: HYDROmorphONE (0.2 MG/ML) 10ML SYG IV PRN ×3 (21:30)
[2017-04-02] MEDS ORDERED: LABETALOL HCL 20MG INJ IV PRN (21:30)
[2017-04-02] MEDS ORDERED: METOCLOPRAMIDE 10 MG INJ ONE (21:30)
[2017-04-02] MEDS ORDERED: MEPERIDINE 25 MG INJ IV PRN (21:30)
[2017-04-02] MEDS ORDERED: PHENYLephrine (100 MCG/ML) 5ML SYG ONE ×4 (21:30→21:51)
[2017-04-02] MEDS ORDERED: ONDANSETRON 4 MG INJ ONE (21:30)
[2017-04-02] MEDS ORDERED: ALBUMIN HUMAN 5% 250 ML IV PRN (21:30)
[2017-04-02] MEDS ORDERED: morphine (1 MG/ML) 10ML SYRINGE IV PRN ×3 (21:30)
[2017-04-02] MEDS ORDERED: ONDANSETRON 4 MG INJ IV PRN (21:30)
[2017-04-02] MEDS ORDERED: HETASTARCH 6% NACL 500 ML ONE (22:04)
[2017-04-02] MEDS ORDERED: HYDROCODONE/APAP (5/325) TAB PO PRN (22:30)
[2017-04-02] MEDS ORDERED: HETASTARCH 6% NACL 500 ML BAG IV* ONE (22:30)
[2017-04-02] MEDS ORDERED: ACETAMINOPHEN/CODEINE #3 TAB PO PRN (22:30)
--- NOTE | 2017-04-02 23:00 | OPR ---
DATE OF OPERATION: 04/02/2017 SURGEON: Emily Zamudio DPM MEDICAL PHYSICIST: Noe aPn DPM PREOPERATIVE DIAGNOSES: 1. Right foot diabetic foot ulceration. 2. Diabetes with peripheral neuropathy. 3. History of puncture wound. 4. History of osteomyelitis. POSTOPERATIVE DIAGNOSES: 1. Right foot diabetic foot ulceration. 2. Diabetes with peripheral neuropathy. 3. History of puncture wound. 4. History of osteomyelitis. PROCEDURES PERFORMED: 1. Excisional debridement, skin, subcutaneous tissue and muscle, 10 x 3 cm. 2. Delayed primary closure of complex surgical ulceration. 3. Application of wound VAC, less than 50 sq cm. ANESTHESIA: General. ESTIMATED BLOOD LOSS: 20 mL. MATERIALS: 2-0 nylon and 3-0 nylon. COMPLICATIONS: None. INDICATION FOR PROCEDURE: Patient presents for revisional debridement. The patient has been using a wound VAC as improved appearance of the wound, presents for revisional debridement and partial geraldine sure. Discussed planned procedure. Foot was marked. Patient has been on perioperative antibiotics . PROCEDURE IN DETAIL: The patient brought into the operating room and placed in the supine position. Formal timeout was performed. The foot was properly marked, confirmed by the surgical team, prepp ed and draped in usual sterile fashion. The wound was debrided excisionally with a curette, pickup scissors, 10 x 3 cm, nonviable skin, subQ muscle. There were no bone fragments identified. The wou nd was irrigated with hydrogen peroxide. At this time, delayed primary closure of complex ulceratio n using a combination of superficial and deep sutures, the 3-0 nylon and 2-0 nylon closure of 10 cm. Wound cultures have been obtained. At this time, a wound VAC was applied intraoperatively. PLAN: The patient was transferred to PACU with stable vital signs stable. Continue wound VAC. Rec [facility] discharge planning. Dictated By: EMILY GERARDO/YA Conf#: [id number] DID#: [id number]
[2017-04-03 00:05] VITALS: BP 122/57; PULSE 68; RESP 20
[2017-04-03] MEDS: PIPER-TAZO 3.375 GM IV (PMX) 100 ML IVPB SCH ×3 (00:05→14:48)
[2017-04-03] MEDS: FAMOTIDINE 20 MG INJ IV SCH ×2 (00:05→08:19)
[2017-04-03 00:20] VITALS: BP 115/59; PULSE 72; RESP 18
[2017-04-03 00:50] VITALS: BP 123/60; PULSE 80; RESP 18
[2017-04-03 01:20] VITALS: BP 128/62; PULSE 70; RESP 20
[2017-04-03] MEDS: ACCU-CHEK XX SCH (02:00)
[2017-04-03 02:20] VITALS: BP 122/58; PULSE 62; RESP 20
[2017-04-03 05:59] LABS: ADD SCAN DIFF NO
[2017-04-03] MEDS: VANCOMYCIN 1.5 GM in SOD CHLORIDE 0.9% 250 ML IVPB SCH (05:59)
[2017-04-03] MEDS: ENOXAPARIN 40 MG/0.4 ML SYG SC SCH (06:05)
[2017-04-03 06:07] LABS: BASOPHIL # 0.1 10^3/ul (0.0-0.1); BASOPHILS % 0.9 % (0.0-2.0); EOSINOPHILS # 0.3 10^3/ul (0.0-0.5); EOSINOPHILS % 3.8 % (0.0-7.0); HEMATOCRIT 30.7 % (42.0-52.0); HEMOGLOBIN 9.7 g/dl (14.0-18.0); LYMPHOCYTES # 1.4 10^3/ul (0.8-2.9); MEAN CORPUSCULAR HEMOGLOBIN 27.7 pg (29.0-33.0); MEAN CORPUSCULAR HGB CONC 31.6 g/dl (32.0-37.0); MEAN CORPUSCULAR VOLUME 87.7 fl (82.0-101.0); MEAN PLATELET VOLUME 9.9 fl (7.4-10.4); MONOCYTE # 0.7 10^3/ul (0.3-0.9); MONOCYTES % 9.4 % (0.0-11.0); NEUTROPHIL # 4.9 10^3/ul (1.6-7.5); NEUTROPHILS % 66.5 % (39.0-77.0); PLATELET COUNT 272 10^3/UL (140-415); RED CELL DISTRIBUTION WIDTH 14.7 % (11.5-14.5); WHITE BLOOD COUNT 7.4 10^3/ul (4.8-10.8)
[2017-04-03 06:26] LABS: CALCIUM 8.7 mg/dl (8.4-10.2); CREATININE 1.13 mg/dl (0.61-1.24); POTASSIUM 4.4 mmol/L (3.5-5.1)
[2017-04-03 06:44] LABS: CREATININE 1.19 mg/dl (0.61-1.24)
[2017-04-03 08:11] VITALS: BP 142/67; RESP 17
[2017-04-03] MEDS: INSULIN ASPART [NOVOLOG] 3 ML PEN SC SCH ×6 (08:15→17:20)
[2017-04-03] MEDS: NPH, HUMAN INSULIN ISOPHANE 3ML VIAL SC SCH (08:17)
[2017-04-03] MEDS: FLUCONAZOLE 200 MG TAB PO SCH (08:18)
[2017-04-03] MEDS: ASCORBIC ACID 500 MG TAB PO SCH (08:19)
--- NOTE | 2017-04-03 15:17 | CONS ---
Date/Time of Note Date/Time of Note DATE: 04/03/17 TIME: 15:14 Assessment/Plan Assessment/Plan Chief Complaint/Hosp Course SUBJECTIVE: No acute changes. Patient is alert, feels good, looks comfortable. Denies pain, no fevers.Wants to go home MICROBIOLOGY: Wound cultures + PSA ANTIMICROBIALS: 1. Vancomycin. 2. Zosyn. 3. Fluconazole. PHYSICAL EXAMINATION: GENERAL: Well-nourished, well-developed man who is alert, in no distress. HEENT: Head atraumatic, normocephalic. Sclerae anicteric. Buccal mucosa pink. NECK: Supple. CHEST: Rise symmetrical. Breath sounds clear. HEART: S1, S2. ABDOMEN: Soft, bowel tones present. EXTREMITIES: With right foot dressing intact. ASSESSMENT: 1. Right foot abscess osteomyelitis, status post incision and drainage 04/01/17y. 2. Diabetes with diabetic neuropathy. PLAN: The patient remains stable. Will change abx to PO Levaquin and anticipate treating for 6 weeks, will f/u at wound clinic and dw podiatry further plan of care [facility] staff Problems: Consultation Date/Type/Reason Admit Date/Time Mar 30, 2017 at 22:29 Type of Consultation: ID Exam/Review of Systems Vital Signs Vitals Vital Signs Date Time Temp Pulse Resp B/P Pulse Ox O2 Delivery O2 Flow Rate FiO2 04/03/17 08:11 97.7 66 17 142/67 97 04/03/17 02:20 Room Air 04/02/17 22:22 6.0 Intake and Output 04/02/17 04/02/17 04/03/17 15:00 23:00 07:00 Intake Total 350 ml 2400 ml 900 ml Output Total 1415 ml 910 ml Balance 350 ml 985 ml -10 ml Results Result Diagram: 04/03/17 0436 04/03/17 0436 Results 24 hrs Laboratory Tests Test 04/02/17 15:51 04/02/17 17:40 04/02/17 20:18 04/02/17 20:38 Bedside Glucose 113 109 98 115 Test 04/02/17 22:55 04/03/17 02:17 04/03/17 04:36 04/03/17 08:13 Bedside Glucose 94 218 276 H White Blood Count 7.4 Red Blood Count 3.50 L Hemoglobin 9.7 L Hematocrit 30.7 L Mean Corpuscular Volume 87.7 Mean Corpuscular Hemoglobin 27.7 L Mean Corpuscular Hemoglobin Concent 31.6 L Red Cell Distribution Width 14.7 H Platelet Count 272 Mean Platelet Volume 9.9 Neutrophils % 66.5 Lymphocytes % 19.0 Monocytes % 9.4 Eosinophils % 3.8 Basophils % 0.9 Nucleated Red Blood Cells % 0.0 Neutrophils # 4.9 Lymphocytes # 1.4 Monocytes # 0.7 Eosinophils # 0.3 Basophils # 0.1 Nucleated Red Blood Cells # 0.0 Sodium Level 141 Potassium Level 4.4 Chloride Level 106 Carbon Dioxide Level 26 Anion Gap 13 Blood Urea Nitrogen 12 Creatinine 1.13 Glucose Level 186 # Calcium Level 8.7 Test 04/03/17 12:06 Bedside Glucose 266 H Medications Medications Current Medications Ondansetron HCl (Zofran Inj) 4 mg Q6H PRN IV NAUSEA AND/OR VOMITING; Start 03/31 at 07:30 Acetaminophen (Tylenol Tab) 650 mg Q6H PRN PO PAIN LEVEL 1-3 OR FEVER; Start at 07:30 Morphine Sulfate (morphine) 2 mg Q4H PRN IV SEVERE PAIN LEVEL 7-10; Start at 07:30 Miscellaneous Information 1 ea NOTE XX ; Start 03/31/17 at 10:30 Glucose (Glutose) 15 gm Q15M PRN PO DECREASED GLUCOSE; Start 03/31/17 at 10:30 Glucose (Glutose) 22.5 gm Q15M PRN PO DECREASED GLUCOSE; Start 03/31/17 at 10:30 Dextrose (D50w Syringe) 25 ml Q15M PRN IV DECREASED GLUCOSE; Start 03/31/17 at 10:30 Dextrose (D50w Syringe) 50 ml Q15M PRN IV DECREASED GLUCOSE; Start 03/31/17 at 10:30 Glucagon (Glucagen) 1 mg Q15M PRN IM DECREASED GLUCOSE; Start 03/31/17 at 10:30 Glucose (Glutose) 15 gm Q15M PRN BUCCAL DECREASED GLUCOSE; Start 03/31/17 at 10: 30 Acetaminophen (Tylenol Tab) 650 mg Q6H PRN PO PAIN AND OR ELEVATED TEMP; Start 03/31/17 at 23:30 Ibuprofen (Motrin) 600 mg Q6H PRN PO PAIN LEVEL 6-10; Start 04/03/17 at 23:30 Ketorolac Tromethamine (Toradol) 30 mg Q6H PRN IV PAIN; Start 03/31/17 at 23:30 ; Stop 04/03/17 at 23:29 Diphenhydramine HCl (Benadryl) 25 mg Q6H PRN IV ITCHING; Start 03/31/17 at 23:30 Famotidine (Pepcid Iv) 20 mg Q12 IV Last administered on 04/03/17 08:19; Admin Dose 20 MG; Start 04/01/17 at 09:00 Enoxaparin Sodium (Lovenox) 40 mg DAILY@07 SC Last administered on 04/03/17 06: 05; Admin Dose 40 MG; Start 04/01/17 at 07:00 Ascorbic Acid (Vitamin C) 1,000 mg DAILY PO Last administered on 04/03/17 08:19 ; Admin Dose 1,000 MG; Start 04/01/17 at 09:00 Fluconazole 200 mg 200 mg DAILY PO Last administered on 04/03/17 08:18; Admin Dose 200 MG; Start 04/01/17 at 09:00 Piperacillin Sod/ Tazobactam Sod (Zosyn 3.375gm/ 100 ml (Pmx)) 100 ml @ 200 mls /hr Q8 IVPB Last administered on 04/03/17 14:48; Admin Dose 200 MLS/HR; Start 04/01/17 at 06:00 Diagnostic Test (Pha) (Accu-Chek) 1 ea 02 XX ; Start 04/02/17 at 02:00 Insulin Human NPH (Humulin N) 18 unit DAILY@08 SC Last administered on 08:17; Admin Dose 18 UNIT; Start 04/02/17 at 08:00 Insulin Human NPH 12 unit 12 unit DAILY@20 SC Last administered on 04/01/17 21: 31; Admin Dose 12 UNIT; Start 04/01/17 at 20:00 Vancomycin HCl/ Sodium Chloride (Vancocin/NS) 250 ml @ 83.333 mls/ hr Q12H IVPB Last administered on 04/03/17 05:59; Admin Dose 83.333 MLS/HR; Start at 06:00 Miscellaneous Information (*Rx Drug Level Order Reminder*) ONCE ONCE XX ; Start 04/03/17 at 17:00; Stop 04/03/17 at 17:01 Acetaminophen/ Hydrocodone Bitart ([place] (5/325)) 2 tab Q4H PRN PO PAIN LEVEL 4 -6; Start 04/02/17 at 22:30 Acetaminophen/ Codeine Phosphate (Tylenol No.3) 1 tab Q4H PRN PO MILD PAIN LEVEL 1-3; Start 04/02/17 at 22:30 KULWANT ZAMORA NP Apr 03, 2017 15:17
[2017-04-03] MEDS ORDERED: LEVOFLOXACIN 750 MG TABLET PO ONE (15:30)
[2017-04-03] MEDS ORDERED: LEVO750T25 PO (16:15)
[2017-04-03] MEDS ORDERED: HYDR-3498 PO (16:15)
--- NOTE | 2017-04-03 16:27 | DS ---
Date/Time of Note Date/Time of Note DATE: 04/03/17 TIME: 16:16 Discharge Summary Admission/Discharge Info Admit Date/Time Mar 30, 2017 at 22:29 Discharge Date/Time Final Diagnosis 1. Right foot abscess/osteomyelitis. status post I&D. Follow-up with podiatry , raul for 6 weeks 2. Diabetes, mellitus. on insulins, follow up with PCP 3. Normocytic anemia. Stable Patient Condition: Stable Hospital Course The patient is a 61-year-old male with a history of diabetes who was sent by Dr. Zamudio to rule out for osteomyelitis, and possible debridement. This is a 61-year-old male with history of puncture wound with subsequent outpatient treatment with oral antibiotics and had treatment failure with developing deep space abscess. 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 Patient had surgical I&D on 03/31/[address] Zamudio with right foot incision and drainage with pulse lavage and excisional debridement of skin, subcutaneous tissue, muscle, and bone 10 x 5 cm. He got second debridement with excisional debridement, skin, subcutaneous tissue and muscle, 10 x 3 cm, delayed primary closure of complex surgical ulceration, and application of wound VAC, less than 50 sq cm on 04/02/2017. Patient is cleared by Dr. Zamudio for discharge without wound Vac and follow up with Dr. Zamudio next week. Patient will be on oral levaquin for 6 weeks per ID. Home Meds Active Scripts Hydrocodone Bit-Acetaminophen (Hydrocodone Bit-APAP) 5-325MG Tablet, 2 TAB PO Q4H Y for PAIN LEVEL 4-6, #30 TAB Prov:LALITHA GRIFFIN MD 04/03/17 Levofloxacin* (Levaquin*) 750 Mg Tablet, 750 MG PO DAILY@06 for 42 Days, TAB Prov:LALITHA GRIFFIN MD 04/03/17 Reported Medications Insulin NPH Human Isophane (Humulin N) 100 Unit/1 Ml Vial, 12 UNIT SQ QPM, VIAL 03/31/17 NPH, Human Insulin Isophane (Humulin N Kwikpen) 100 Unit/1 Ml Insuln.pen, 18 UNIT SQ QAM, EA 03/31/17 Follow-up Plan PCP in one week [place] next week Primary Care Provider Adams Zamudio Dpm Pending Labs Laboratory Tests Test 04/02/17 17:40 04/02/17 20:18 04/02/17 20:38 04/02/17 22:55 Bedside Glucose 109mg/dL (70-220) 98mg/dL (70-220) 115mg/dL (70-220) 94mg/dL (70-220) Test 04/03/17 02:17 04/03/17 04:36 04/03/17 08:13 04/03/17 12:06 Bedside Glucose 218mg/dL (70-220) 276mg/dL (70-220) 266mg/dL (70-220) White Blood Count 7.410^3/ul (4.8-10.8) Red Blood Count 3.5010^6/ul (4.70-6.10) Hemoglobin 9.7g/dl (14.0-18.0) Hematocrit 30.7% (42.0-52.0) Mean Corpuscular Volume 87.7fl (82.0-101.0) Mean Corpuscular Hemoglobin 27.7pg (29.0-33.0) Mean Corpuscular Hemoglobin Concent 31.6g/dl (32.0-37.0) Red Cell Distribution Width 14.7% (11.5-14.5) Platelet Count 30522^3/UL (140-415) Mean Platelet Volume 9.9fl (7.4-10.4) Neutrophils % 66.5% (39.0-77.0) Lymphocytes % 19.0% (15.0-51.0) Monocytes % 9.4% (0.0-11.0) Eosinophils % 3.8% (0.0-7.0) Basophils % 0.9% (0.0-2.0) Nucleated Red Blood Cells % 0.0/100WBC (0.0-0.0) Neutrophils # 4.910^3/ul (1.6-7.5) Lymphocytes # 1.410^3/ul (0.8-2.9) Monocytes # 0.710^3/ul (0.3-0.9) Eosinophils # 0.310^3/ul (0.0-0.5) Basophils # 0.110^3/ul (0.0-0.1) Nucleated Red Blood Cells # 0.010^3/ul (0.0-0.0) Sodium Level 141mmol/L (135-144) Potassium Level 4.4mmol/L (3.5-5.1) Chloride Level 106mmol/L (97-110) Carbon Dioxide Level 26mmol/L (21-31) Anion Gap 13 (8-16) Blood Urea Nitrogen 12mg/dl (7-20) Creatinine 1.13mg/dl (0.61-1.24) Glucose Level 186mg/dl (70-220) Calcium Level 8.7mg/dl (8.4-10.2) Microbiology Date/Time Source Procedure Growth Status 04/02/17 21:57 Foot Right Gram Stain - Final Resulted 04/02/17 21:57 Foot Right Surgical Biopsy Culture Pending Resulted 04/02/17 21:57 Foot Right Gram Stain - Final Resulted 04/02/17 21:57 Foot Right Wound Culture Pending Resulted LALITHA GRIFFIN MD Apr 03, 2017 16:27
[2017-04-03] MEDS ORDERED: IBUPROFEN 600 MG TAB PO PRN (23:30)
[2017-04-04] MEDS ORDERED: LEVOFLOXACIN 750 MG TABLET PO SCH (06:00)
== END 2017-04-03 19:00 | disposition home or self-care (01) | DRG 629 ==
LOC: FTE 19:22 → PP2 22:29
PROVIDERS: ADMIT Internal Medicine; ATTEND Internal Medicine
PROC: 0QBN0ZZ Excision of Right Metatarsal, Open Approach (ICD-10-PCS; principal; 2017-03-31 18:00)
PROC: 0KBV0ZZ Excision of Right Foot Muscle, Open Approach (ICD-10-PCS; 2017-04-02)
DX: E11.69 Type 2 diabetes mellitus with other specified complication (principal); M00.9 Pyogenic arthritis, unspecified; M86.9 Osteomyelitis, unspecified; E11.628 Type 2 diabetes mellitus with other skin complications; E11.42 Type 2 diabetes mellitus with diabetic polyneuropathy; L02.415 Cutaneous abscess of right lower limb; D64.9 Anemia, unspecified; L03.031 Cellulitis of right toe; Z79.4 Long term (current) use of insulin; B96.5 Pseudomonas (aeruginosa) (mallei) (pseudomallei) as the cause of diseases classified elsewhere; B95.4 Other streptococcus as the cause of diseases classified elsewhere
CPT/HCPCS: 36415; 73630; 80048; 80053; 80202; 82565; 82962; 83036; 83540; 83735; 84100; 84132; 84520; 85025; 85651; 87040; 87070; 87075; 87102; 87116; 88304; 88311; 96365; 96366; 96372; 96375; 96376; J0692; J1650; J1815; J2250; J2370; J2405; J2543; J2765; J3010; J3370; J7050; L3260-LT